=== PATIENT | male | born 1945 | race Caucasian/White ===

== ENCOUNTER 2019-12-24 18:08 | Emergency (ER) | payer OTHER, BC ==
--- NOTE | 2019-12-24 19:50 | RAD REPORT ---
EXAM DESCRIPTION: CT - Soft Tissue Neck Wo Contr - 12/24/2019 7:16 pm CLINICAL HISTORY: Neck pain/dysphasia COMPARISON: none TECHNIQUE: Computed axial tomography of the neck was obtained. IV contrast was not requested. Coron al and sagittal reconstruction was performed. All CT scans are performed using dose optimization technique as appropriate and may include automated exposure control or mA/KV adjustment according to patient size. FINDINGS: 11 millimeter soft tissue structure left fossa of Rosenmuller. The remainder of the phary nx, larynx, tongue base and subglottic trachea are unremarkable The parotid, and submandibular glands are unremarkable. Thyroid is either very small or absent No neck lymphadenopathy Fluid within the sinuses/mastoids is not seen. A radiopaque foreign body is not seen within the airway or cervical esophagus IMPRESSION: 11 millimeter soft tissue structure left fossa of Rosenmuller may be secondary to incomp lete distention or a mass. Follow-up recommended A foreign body is not seen
--- NOTE | 2019-12-24 19:50 | RAD REPORT ---
EXAM DESCRIPTION: CT - Thorax Wo Con - 12/24/2019 7:18 pm CLINICAL HISTORY: Shortness of breath/dysphasia. Possible foreign body COMPARISON: None TECHNIQUE: Computed axial tomography of the chest was obtained. Contrast was not requested. All CT scans are performed using dose optimization technique as appropriate and may include automated exposure control or mA/KV adjustment according to patient size. FINDINGS: The evaluation of mediastinum, keanu and vessels is limited secondary to lack of IV contras t administration. Small to moderate hiatal hernia. The esophagus is moderately dilated containing fluid. A radiopaque f oreign body is not seen within the esophagus . Minimal reticulonodular opacities right lung No pleural effusion. No pericardial effusion. No mediastinal or hilar lymphadenopathy IMPRESSION: Esophagus is moderately dilated. This could be secondary to reflux or mass
--- NOTE | 2019-12-24 20:50 | ER ---
Nurse's Notes [facility] Name: Ludwin Melendez Age: 74 yrs Sex: Male : 1945 Arrival Date: 12/24/2019 Time: 18:09 Bed 25 Private MD: Tito De Paz V Diagnosis: Esophageal obstruction Presentation: 12/23 18:22 Chief complaint: Patient states: He has had a hard time swallowing since 0800 this aj1 morning. Patient's reports that he has had episodes like this in the past, but never lasting longer than 40 minutes. States that he has done multiple barium swallows at [facility] but they always come up normal. Patient has a history of throat cancer and lung cancer. Coronavirus screen: The patient has NOT traveled to a country currently being monitored by the CDC within the last 14 days. Ebola Screen: Patient denies travel to an Ebola-affected area in the 21 days before illness onset. Initial Sepsis Screen: Does the patient meet any 2 criteria? No. Patient's initial sepsis screen is negative. Does the patient have a suspected source of infection? No. Patient's initial sepsis screen is negative. Risk Assessment: Do you want to hurt yourself or someone else? Patient reports no desire to harm self or others. 18:22 Method Of Arrival: Ambulatory aj1 18:22 Acuity: MAGALYS 3 aj1 19:30 Onset of symptoms was December 24, 2019. rr5 Triage Assessment: 18:29 General: Appears in no apparent distress. uncomfortable, Behavior is calm, cooperative, aj1 appropriate for age. Pain: Denies pain. Historical: - Allergies: 18:29 No Known Allergies; aj1 - Home Meds: 18:29 levothyroxine oral [Active]; Lisinopril Oral [Active]; Aspirin Oral [Active]; aj1 Metoprolol Tartrate Oral [Active]; prostate med [Active]; atorvastatin oral oral [Active]; - PMHx: 18:29 throat cancer; lung cancer; Atrial Fib; ablasion; aj1 - Immunization history:: Flu vaccine is up to date. - Social history:: Smoking status: Patient/guardian denies using tobacco. Screenin:30 Abuse screen: Denies threats or abuse. Denies injuries from another. Nutritional aj1 screening: No deficits noted. Tuberculosis screening: No symptoms or risk factors identified. 19:30 Fall Risk None identified. Total Herzog Fall Scale indicates No Risk (0-24 pts). rr5 Assessment: 18:30 General: Appears in no apparent distress. uncomfortable, Behavior is calm, cooperative, aj1 appropriate for age. Pain: Denies pain. Neuro: Level of Consciousness is awake, alert, obeys commands, Oriented to person, place, time, situation, Moves all extremities. Full function Gait is steady, Speech is normal, Facial symmetry appears normal, Reports difficulty swallowing since 0800 this morning. Patient reports that he has had previous episodes like this in the past, even since he had chemo and radiation for throat cancer, but the longest any of those episodes have lasted is 40 minutes and this episode has been going on since 0800 this morning. Patient is spitting into a cup and states he has not been able to swallow any solids or liquids. Cardiovascular: Patient's skin is warm and dry. Respiratory: Airway is patent Respiratory effort is even, unlabored, Respiratory pattern is regular, symmetrical. GI: No signs and/or symptoms were reported involving the gastrointestinal system. : No signs and/or symptoms were reported regarding the genitourinary system. EENT: Throat is clear. Derm: Skin is pink, warm \T\ dry. normal. Musculoskeletal: Circulation, motion, and sensation intact. 19:30 Reassessment: Patient appears in no apparent distress at this time. Patient is alert, rr5 oriented x 3, equal unlabored respirations, skin warm/dry/pink. awaiting for CT result. General: Appears in no apparent distress. uncomfortable, Behavior is calm, cooperative, appropriate for age. Neuro: Level of Consciousness is awake, alert, obeys commands, Oriented to person, place, time, situation. Cardiovascular: Capillary refill < 3 seconds Patient's skin is warm and dry. Respiratory: Airway is patent Respiratory effort is even, unlabored, Respiratory pattern is regular, symmetrical. EENT: Reports difficulty swallowing since 0800 H today. 20:30 Reassessment: Patient appears in no apparent distress at this time. patient vomited rr5 previously ingested food, after hew throw up he feels relieved. assess by ED provider a cup of water given and able to drink without any difficulty. 20:59 Reassessment: Patient appears in no apparent distress at this time. Patient is alert, rr5 oriented x 3, equal unlabored respirations, skin warm/dry/pink. discharge instruction given and explained without complaint made. Patient states feeling better. Patient states symptoms have improved. Vital Signs: 18:22 BP 161 / 93; Pulse 77; Resp 18; Temp 98.1; Pulse Ox 100% on R/A; Weight 77.11 kg (R); aj1 Height 6 ft. 2 in. (187.96 cm) (R); 19:58 BP 150 / 84; Pulse 73; Resp 19; Temp 98.7; Pulse Ox 98% ; rr5 20:44 BP 145 / 75; Pulse 79; Resp 17; Pulse Ox 99% ; rr5 18:22 Body Mass Index 21.83 (77.11 kg, 187.96 cm) aj1 ED Course: 18:09 Patient arrived in ED. rg4 18:10 Tito De Paz MD is Private Physician. rg4 18:20 Reno Frazier MD is Attending Physician. kdr 18:22 Sugar Pruitt, RN is Primary Nurse. aj1 18:24 Triage completed. aj1 18:29 Arm band placed on. aj1 18:30 Patient has correct armband on for positive identification. Bed in low position. Call aj1 light in reach. Side rails up X 1. 18:30 No provider procedures requiring assistance completed. aj1 19:16 CT Chest Wo Con In Process Unspecified. EDMS 19:16 Soft Tissue Neck Wo Contr In Process Unspecified. EDMS 20:43 Tito De Paz MD is Referral Physician. tw4 20:46 Chiquis Murillo MD is Referral Physician. tw4 20:49 Mahad Back MD is Referral Physician. tw4 20:49 Sean Monk MD is Referral Physician. tw4 21:00 Patient did not have IV access during this emergency room visit. rr5 Administered Medications: No medications were administered Outcome: 20:49 Discharge ordered by . tw4 21:00 Discharged to home ambulatory, with family. rr5 21:00 Condition: stable 21:00 Discharge instructions given to patient, family, Instructed on discharge instructions, follow up and referral plans. medication usage, Demonstrated understanding of instructions, follow-up care, medications. 21:01 Patient left the ED. rr5 Signatures: Dispatcher [employer] EDMS Sugar Pruitt RN RN aj1 Freddie, MD SUSY Bojorquez kdr Mauricio, Elke rg4 Sonny Kinney MD MD tw4 Donte Aguilar RN RN rr5
--- NOTE | 2019-12-24 20:50 | EDPHYS ---
Physician Documentation [facility] Name: Ludwin Melendez Age: 74 yrs Sex: Male : 1945 Arrival Date: 12/24/2019 Time: 18:09 Bed 25 Private MD: Tito De Paz V ED Physician Reno Frazier HPI: 12/23 18:35 The patient presents with dysphagia, of solids, of both solids and liquids, a foreign kdr body sensation in the throat. Onset: The symptoms/episode began/occurred suddenly, today. Severity of symptoms: At their worst the symptoms were moderate, just prior to arrival, in the emergency department the symptoms are unchanged. Associated signs and symptoms: Pertinent positives: The patient is unable to pass fluids or saliva. The patient has not experienced similar symptoms in the past. The patient has not recently seen a physician. Historical: - Allergies: 18:29 No Known Allergies; aj1 - Home Meds: 18:29 levothyroxine oral [Active]; Lisinopril Oral [Active]; Aspirin Oral [Active]; aj1 Metoprolol Tartrate Oral [Active]; prostate med [Active]; atorvastatin oral oral [Active]; - PMHx: 18:29 throat cancer; lung cancer; Atrial Fib; ablasion; aj1 - Immunization history:: Flu vaccine is up to date. - Social history:: Smoking status: Patient/guardian denies using tobacco. ROS: 18:35 Constitutional: Negative for fever, chills, and weight loss, Eyes: Negative for injury, kdr pain, redness, and discharge, ENT: Negative for injury, pain, and discharge, Neck: Negative for injury, pain, and swelling, Cardiovascular: Negative for chest pain, palpitations, and edema, Respiratory: Negative for shortness of breath, cough, wheezing, and pleuritic chest pain, Abdomen/GI: Negative for abdominal pain, nausea, vomiting, diarrhea, and constipation - he he spitting saliva into a cup Back: Negative for injury and pain, : Negative for injury, bleeding, discharge, and swelling, MS/Extremity: Negative for injury and deformity, Skin: Negative for injury, rash, and discoloration, Neuro: Negative for headache, weakness, numbness, tingling, and seizure activity. Psych: Negative for depression, anxiety, suicide ideation, homicidal ideation, and hallucinations, Allergy/Immunology: Negative for hives, rash, and allergies, Endocrine: Negative for neck swelling, polydipsia, polyuria, polyphagia, and marked weight changes, Hematologic/Lymphatic: Negative for swollen nodes, abnormal bleeding, and unusual bruising. Exam: 18:35 Constitutional: This is a well developed, well nourished patient who is awake, alert, kdr and in no acute distress. Head/Face: Normocephalic, atraumatic. Eyes: Pupils equal round and reactive to light, extra-ocular motions intact. Lids and lashes normal. Conjunctiva and sclera are non-icteric and not injected. Cornea within normal limits. Periorbital areas with no swelling, redness, or edema. Neck: Trachea midline, no thyromegaly or masses palpated, and no cervical lymphadenopathy. Supple, full range of motion without nuchal rigidity, or vertebral point tenderness. No Meningismus. Chest/axilla: Normal chest wall appearance and motion. Nontender with no deformity. No lesions are appreciated. Cardiovascular: Regular rate and rhythm with a normal S1 and S2. No gallops, murmurs, or rubs. Normal PMI, no JVD. No pulse deficits. Respiratory: Lungs have equal breath sounds bilaterally, clear to auscultation and percussion. No rales, rhonchi or wheezes noted. No increased work of breathing, no retractions or nasal flaring. Abdomen/GI: Soft, non-tender, with normal bowel sounds. No distension or tympany. No guarding or rebound. No evidence of tenderness throughout. Back: No spinal tenderness. No costovertebral tenderness. Full range of motion. Skin: Warm, dry with normal turgor. Normal color with no rashes, no lesions, and no evidence of cellulitis. MS/ Extremity: Pulses equal, no cyanosis. Neurovascular intact. Full, normal range of motion. Neuro: Awake and alert, GCS 15, oriented to person, place, time, and situation. Cranial nerves II-XII grossly intact. Motor strength 5/5 in all extremities. Sensory grossly intact. Cerebellar exam normal. Normal gait. Psych: Awake, alert, with orientation to person, place and time. Behavior, mood, and affect are within normal limits. 18:35 Abdomen/GI: The patient is spitting into a cup and is unable . Vital Signs: 18:22 BP 161 / 93; Pulse 77; Resp 18; Temp 98.1; Pulse Ox 100% on R/A; Weight 77.11 kg (R); aj1 Height 6 ft. 2 in. (187.96 cm) (R); 19:58 BP 150 / 84; Pulse 73; Resp 19; Temp 98.7; Pulse Ox 98% ; rr5 20:44 BP 145 / 75; Pulse 79; Resp 17; Pulse Ox 99% ; rr5 18:22 Body Mass Index 21.83 (77.11 kg, 187.96 cm) aj1 MDM: 18:35 Data reviewed: vital signs, nurses notes, lab test result(s), radiologic studies. kdr Counseling: I had a detailed discussion with the patient and/or guardian regarding: the historical points, exam findings, and any diagnostic results supporting the discharge/admit diagnosis, lab results, radiology results. 20:49 Patient medically screened. tw4 12/23 18:34 Order name: CT Chest Wo Con; Complete Time: 20:10 kdr 12/23 19:05 Order name: Soft Tissue Neck Wo Contr; Complete Time: 20:10 EDMS Administered Medications: No medications were administered Disposition: 12/24/19 20:49 Discharged to Home. Impression: Esophageal obstruction. - Condition is Stable. - Discharge Instructions: Dysphagia, Esophageal Stricture, Esophagogastroduodenoscopy, Dysphagia Diet Level 3, Mechanically Advanced, Dysphagia Diet Level 2, Mechanically Altered, Dysphagia Diet Level 1, Pureed. - Medication Reconciliation Form, Thank You Letter, Antibiotic Education, Prescription Opioid Use form. - Follow up: Private Physician; When: Upon discharge from the Emergency Department; Reason: Recheck today's complaints, Continuance of care, Re-evaluation by your physician. Follow up: Tito De Paz MD; When: Upon discharge from the Emergency Department; Reason: Recheck today's complaints, Continuance of care, Re-evaluation by your physician. Follow up: Chiquis Murillo MD; When: Upon discharge from the Emergency Department; Reason: Recheck today's complaints, Continuance of care, Re-evaluation by your physician. Follow up: Mahad Back MD; When: Upon discharge from the Emergency Department; Reason: Recheck today's complaints, Continuance of care, Re-evaluation by your physician. Follow up: Sean Monk MD; When: Upon discharge from the Emergency Department; Reason: Recheck today's complaints, Continuance of care, Re-evaluation by your physician. Signatures: Dispatcher [employer] [facility] Sugar Pruitt RN RN aj1 Reno Frazier MD MD kdr Sonny Kinney MD MD tw4 Donte Aguilar RN RN rr5 Corrections: (The following items were deleted from the chart) 19:05 18:35 Soft Tissue Neck W/Contr+CT.RAD.BRZ ordered. [facility] 21:01 20:49 12/24/2019 20:49 Discharged to Home. Impression: Esophageal obstruction. rr5 Condition is Stable. Forms are Medication Reconciliation Form, Thank You Letter, Antibiotic Education, Prescription Opioid Use. Follow up: Private Physician; When: Upon discharge from the Emergency Department; Reason: Recheck today's complaints, Continuance of care, Re-evaluation by your physician. Follow up: Tito De Paz; When: Upon discharge from the Emergency Department; Reason: Recheck today's complaints, Continuance of care, Re-evaluation by your physician. Follow up: Chiquis Murillo; When: Upon discharge from the Emergency Department; Reason: Recheck today's complaints, Continuance of care, Re-evaluation by your physician. Follow up: Mahad Back; When: Upon discharge from the Emergency Department; Reason: Recheck today's complaints, Continuance of care, Re-evaluation by your physician. Follow up: Sean Monk; When: Upon discharge from the Emergency Department; Reason: Recheck today's complaints, Continuance of care, Re-evaluation by your physician. tw4
[2019-12-24 21:10] VITALS: TEMP 98.7
[2019-12-24 21:16] VITALS: BP 145/75; O2SAT 99
== END 2019-12-24 21:01 | disposition home or self-care (01) ==
LOC: ER 18:08
DX: K22.2 Esophageal obstruction (principal); I48.91 Unspecified atrial fibrillation; Z85.21 Personal history of malignant neoplasm of larynx; Z85.118 Personal history of other malignant neoplasm of bronchus and lung
CPT/HCPCS: 70490; 71250; 99283